=== PATIENT | male | born 1985 | race Caucasian/White ===

== ENCOUNTER 2016-07-22 00:08 | Emergency (ER) | payer OTHER ==
[2016-07-22 00:17] VITALS: BP 122/67; PULSE 90; RESP 20; TEMP 98.5
--- NOTE | 2016-07-22 00:39 | ED ---
Wound/Laceration HPI - General Chief Complaint: Wound/Laceration Stated Complaint: finger laceration/lightheaded Time Seen by Provider: 07/22/16 00:12 Source: patient, RN notes reviewed Mode of arrival: ambulatory Limitations: no limitations - History of Present Illness Initial Comments: Patient is a 30-year-old male presents to the emergency room for evaluation of finger laceration. Patient states about 3 hours ago while cooking dinner he sliced his finger with a knife. Patient states the area will not stop bleeding. Patient states he put superglue over the laceration with no relief of symptoms. Patient denies any numbness or tingling in his finger. Patient denies taking blood thinners. Patient states last tetanus vaccine was within the last 5 years. Patient denies any other injuries during incident. Patient also states he's been having a migraine since he sliced his finger. Patient states he has a history of migraines. Patient states this is similar to his normal migraines. Patient states he feels nauseous. Patient states he is a 8 out of 10 headache. Patient denies numbness or tingling in extremities. Patient denies neck pain. Patient denies any fevers or chills. - Related Data Previous Rx's Medication Instructions Recorded Cyclobenzaprine [Flexeril] 10 mg PO TID #20 tab 07/03/16 Naproxen 500 mg PO Q12HR #20 tab 07/03/16 Allergies Allergy/AdvReac Type Severity Reaction Status Date / Time Sulfa (Sulfonamide Allergy Swelling Verified 07/22/16 00:17 Antibiotics) Review of Systems ROS Statement: Those systems with pertinent positive or pertinent negative responses have been documented in the HPI. ROS Other: All systems not noted in ROS Statement are negative. Past Medical History Additional Past Medical History / Comment(s): TBI, PTSD, migraines History of Any Multi-Drug Resistant Organisms: None Reported Past Surgical History: Ear Surgery, Orthopedic Surgery Past Psychological History: PTSD Smoking Status: Never smoker Past Alcohol Use History: None Reported Past Drug Use History: None Reported General Exam - General Exam Comments Initial Comments: Sitting in exam room, no acute distress. Limitations: no limitations General appearance: alert, in no apparent distress Head exam: Present: atraumatic, normocephalic, normal inspection Eye exam: Present: normal appearance, PERRL, EOMI Pupils: Present: normal accommodation ENT exam: Present: normal exam Neck exam: Present: normal inspection Respiratory exam: Present: normal lung sounds bilaterally. Absent: respiratory distress Cardiovascular Exam: Present: regular rate, normal rhythm, normal heart sounds Right Hand Wrist exam: Present: laceration (1 cm laceration over DIP joint of the second digit) Neuro motor exam: Present: wrist extension intact, thumb opposition intact, thumb IP flexion intact, thumb adduction intact, fingers 2-5 abduction intact Vascular: Present: normal capillary refill (Capillary refill less than 2 seconds ), radial pulse (2+), ulnar pulse (2+) Back exam: Present: normal inspection Neurological exam: Present: alert, oriented X3, CN II-XII intact, normal gait Expanded Patient oriented to: Present: person, place, time Speech: Present: fluid speech Cranial nerves: EOM's Intact: Normal Sensory exam: Upper Extremity Light Touch: Normal, Lower Extremity Pin Prick: Normal Psychiatric exam: Present: normal affect, normal mood Skin exam: Present: warm, dry. Absent: rash Course Vital Signs 07/22/16 00:14 Temperature 98.5 F Pulse Rate 90 Respiratory 20 Rate Blood Pressure 122/67 O2 Sat by Pulse 100 Oximetry Procedures - Laceration Laceration #1 Consent Obtained: verbal consent Indication: laceration Site: other (right index finger) Size (cm): 1 Description: linear Depth: simple, single layer Anesthetic Used: lidocaine 1% Anesthesia Technique: local infiltration Amount (mls): 1 Pre-repair: irrigated extensively Type of Sutures: nylon Size of Sutures: 6-0 Number of Sutures: 3 Technique: simple, interrupted Patient Tolerated Procedure: well, no complications Medical Decision Making - Medical Decision Making Patient is a 30-year-old male presents to the emergency room for evaluation of finger laceration and migraine headache. Patient was given medication for migraine. Laceration repaired with sutures. Advised patient to return in 7-10 days for suture removal. Advised patient to follow-up with his primary care provider for further evaluation of migraine headaches. Patient states he understands everything that was discussed with him. Return parameters discussed. Case discussed with Dr. Alcala. - Radiology Data Radiology results: report reviewed, image reviewed Disposition Clinical Impression: Finger laceration, Headache Disposition: HOME SELF-CARE Condition: Good Instructions: Acute Headache (ED), Laceration (ED), Care For Your Stitches (ED) Additional Instructions: Do not soak suture area in water. Clean suture area with a damp cloth. Please return in 7-10 days for suture removal. Please follow up with primary care provider for evaluation of migraine headaches. Drink plenty of water. Please follow up with primary care provider in 1-2 days. If any new symptom arises, symptoms worsen or fever develops, return to ER as soon as possible. Referrals: Najma Nunez MD [Primary Care Provider] - 1-2 days Time of Disposition: 01:58
--- NOTE | 2016-07-22 01:11 | XR ---
EXAMINATION TYPE: XR finger RT DATE OF EXAM: 07/22/2016 1:06 AM COMPARISON: NONE HISTORY: Laceration TECHNIQUE: 3 views FINDINGS: I see no fracture nor dislocation. Joint spaces are normal. Soft tissues appear normal. IMPRESSION: Normal right index finger.
[2016-07-22] MEDS ORDERED: ONDANSETRON ODT 4 MG TAB PO STA (01:36)
[2016-07-22] MEDS ORDERED: Acetaminophen-Codeine 300-30mg TAB PO STA (01:36)
[2016-07-22] MEDS ORDERED: ACET/COD 300 MG/30 MG STARTER PACK 6 TAB BTL PO STA (02:00)
== END 2016-07-22 02:07 | disposition home or self-care (01) ==
LOC: EC 00:08
DX: S61.210A Laceration without foreign body of right index finger without damage to nail, initial encounter (principal); W26.0XXA Contact with knife, initial encounter; Y93.G3 Activity, cooking and baking; G43.909 Migraine, unspecified, not intractable, without status migrainosus; Z87.820 Personal history of traumatic brain injury; Z88.2 Allergy status to sulfonamides
CPT/HCPCS: 12001; 99283

== ENCOUNTER 2016-08-01 14:04 | Emergency (ER) | payer OTHER ==
[2016-08-01 14:12] VITALS: RESP 18
[2016-08-01 14:12] LABS: Glucose,Whole Blood 94 mg/dL (75-99)
[2016-08-01] MEDS ORDERED: SODIUM CHLORIDE 0.9% 1,000 ML IV ONE (14:13)
[2016-08-01 14:47] LABS: Anion Gap 9 mmol/L; Blood Urea Nitrogen 14 mg/dL (9-20); Calcium 9.1 mg/dL (8.4-10.2); Carbon Dioxide 24 mmol/L (22-30); Chloride 105 mmol/L (98-107); Glucose 99 mg/dL (74-99); Non-African American GFR(MDRD) >60 (>60 ml/min/1.73 sqM); Potassium 4.2 mmol/L (3.5-5.1); Sodium 138 mmol/L (137-145)
[2016-08-01 14:50] LABS: Basophils # (A) 0.1 k/uL (0-0.2); Basophils % (A) 1 %; CH 27.9; CHCM 34.4; Eosinophils # (A) 0.1 k/uL (0-0.7); Eosinophils % (A) 1 %; HCT 42.1 % (39.0-53.0); HDW 2.71; HGB 13.9 gm/dL (13.0-17.5); Luc # (Auto) 0.21; Luc % (Auto) 2; Lymphocytes # (A) 1.7 k/uL (1.0-4.8); Lymphocytes % (A) 19 %; MCHC 33.1 g/dL (31.0-37.0); MCV 81.3 fL (80.0-100.0); Mean Platelet Volume 7.2; Monocytes # (A) 0.7 k/uL (0-1.0); Monocytes % (A) 7 %; Neutrophils # (A) 6.3 k/uL (1.3-7.7); Neutrophils % (A) 69 %; RBC 5.17 m/uL (4.30-5.90); RDW 14.1 % (11.5-15.5); WBC 9.1 k/uL (3.8-10.6); WBC (Perox) 9.37
[2016-08-01] MEDS ORDERED: HYDROcodone/APAP 10-325MG 1 EACH TAB PO ONE (14:54)
--- NOTE | 2016-08-01 14:54 | ED ---
General Adult HPI - General Chief complaint: Syncope Stated complaint: Syncope Time Seen by Provider: 08/01/16 14:09 Source: patient, family, EMS, RN notes reviewed Mode of arrival: EMS Limitations: no limitations - History of Present Illness Initial comments: 30-year-old male presenting with significant other after possible seizure. Patient was at the orthopedic office for evaluation of his left AC joint when he had onset of convulsions and unresponsiveness for several minutes. Patient states that he has had similar episodes of seizure-like activity in the past and has seen a neurologist for this in the past. His last episode was about a year ago. He states that he was off of his normal medications for several weeks until he had his prescriptions refilled several days ago. He is now back and all of his normal medications. He states he is feeling back to normal at this time. State he has pain in his left shoulder although this is chronic. He denies any fevers or chills. He denies any neck pain. - Related Data Home Medications Medication Instructions Recorded Confirmed Aspirin/Acetaminophen/Caffeine 1 tab PO Q8H PRN 08/01/16 08/01/16 [Excedrin Migraine Caplet] DULoxetine HCL [Cymbalta] 60 mg PO DAILY 08/01/16 08/01/16 Gabapentin [Neurontin] 300 mg PO DAILY 08/01/16 08/01/16 Ibuprofen [Motrin] 600 mg PO Q8HR PRN 08/01/16 08/01/16 Lisinopril [Zestril] 20 mg PO DAILY 08/01/16 08/01/16 Prazosin HCl 2 mg PO DAILY 08/01/16 08/01/16 rOPINIRole HCL [Requip] 1 mg PO HS 08/01/16 08/01/16 risperiDONE [RisperDAL] 2 mg PO DAILY 08/01/16 08/01/16 Previous Rx's Medication Instructions Recorded HYDROcodone/APAP 10-325MG [[place] 1 tab PO Q6H PRN #12 tab 08/01/16 10-325] Allergies Allergy/AdvReac Type Severity Reaction Status Date / Time Sulfa (Sulfonamide Allergy Swelling Verified 08/01/16 14:38 Antibiotics) Review of Systems ROS Statement: Those systems with pertinent positive or pertinent negative responses have been documented in the HPI. ROS Other: All systems not noted in ROS Statement are negative. Past Medical History Additional Past Medical History / Comment(s): TBI, PTSD, migraines History of Any Multi-Drug Resistant Organisms: None Reported Past Surgical History: Ear Surgery, Orthopedic Surgery Past Psychological History: PTSD Smoking Status: Former smoker Past Alcohol Use History: None Reported Past Drug Use History: None Reported General Exam - General Exam Comments Initial Comments: General: Awake and Alert. No acute distress. Does not appear acutely ill. Eyes: DENA, EOM intact. No nystagmus. No scleral icterus. HENT: Atraumatic, normocephalic. Mucous membranes moist. Trachea midline. Neck: The neck is supple, there is no tenderness or JVD. Cardiovascular: Regular rate and rhythm. No murmur, rub, or gallop is appreciated. Distal pulses intact. Respiratory: Lungs are clear to auscultation bilaterally. No wheezes, rales, rhonchi. No respiratory distress. Gastrointestinal: Soft, Nontender. No rebound or guarding. Non-distended. No masses or organomegaly noted. No CVA tenderness. Musculoskeletal: Tenderness of left AC joint. Otherwise MSK exam with no tenderness. Normal ROM. No gross deformity. No strength deficits. Neurological: A&Ox3. CN II-XII grossly intact, There are no obvious motor or sensory deficits. Coordination appears grossly intact. Speech is normal. Skin: Skin is warm and dry and no rashes or lesions are noted. Psychiatric: Cooperative, appropriate mood & affect, normal judgment. Limitations: no limitations Course Vital Signs 08/01/16 08/01/16 08/01/16 14:09 14:45 15:50 Temperature 98.1 F 98.0 F Pulse Rate 98 74 Pulse Rate [ 97 Apical] Respiratory 18 18 Rate Blood Pressure 122/74 124/76 O2 Sat by Pulse 100 99 Oximetry EKG Findings - EKG Comments: EKG Findings:: 14:07. Normal sinus rhythm. Rate 100. [place] 142. QRS 82. QT/ QTC 342/441. Normal axis. No STEMI. Normal EKG. Medical Decision Making - Medical Decision Making 30-year-old male presenting after a likely seizure. Patient is returned to baseline during examination the ED. Does have history of seizures but is not currently on any antiepileptic medications. He has not seen a neurologist in some time, although he states he was never been on antiepileptic medications in the past. No plan for loading at this time with Dilantin or Keppra. Patient observed in the ED without any return of seizure activity. Basic lab work was performed which is unremarkable. EKG was done and unremarkable as well. Patient has normal neurological exam. He was able to ambulate without issue. Discussed close follow-up with his PCP and neurology. Discussed continue follow -up with orthophoric his left shoulder pain. Discussed taking all of his normal medications as prescribed. Discussed concerning signs symptoms for immediate return to ED. Patient and family agreeable with plan a discharge home. Was provided with a 3 day prescription of his [place] until he is able to follow-up with PCP. - Lab Data Result diagrams: 08/01/16 14:15 08/01/16 14:15 Lab Results 08/01/16 08/01/16 08/01/16 Range/Units 14:09 14:15 14:15 WBC 9.1 (3.8-10.6) k/uL RBC 5.17 (4.30-5.90) m/uL Hgb 13.9 (13.0-17.5) gm/dL Hct 42.1 (39.0-53.0) % MCV 81.3 (80.0-100.0) fL MCH 27.0 (25.0-35.0) pg MCHC 33.1 (31.0-37.0) g/dL RDW 14.1 (11.5-15.5) % Plt Count 231 (150-450) k/uL Neutrophils % 69 % Lymphocytes % 19 % Monocytes % 7 % Eosinophils % 1 % Basophils % 1 % Neutrophils # 6.3 (1.3-7.7) k/uL Lymphocytes # 1.7 (1.0-4.8) k/uL Monocytes # 0.7 (0-1.0) k/uL Eosinophils # 0.1 (0-0.7) k/uL Basophils # 0.1 (0-0.2) k/uL Sodium 138 (137-145) mmol/L Potassium 4.2 (3.5-5.1) mmol/L Chloride 105 (98-107) mmol/L Carbon Dioxide 24 (22-30) mmol/L Anion Gap 9 mmol/L BUN 14 (9-20) mg/dL Creatinine 0.93 (0.66-1.25) mg/dL Est GFR (MDRD) Af Amer >60 (>60 ml/min/1.73 sqM) Est GFR (MDRD) Non-Af >60 (>60 ml/min/1.73 sqM) Glucose 99 (74-99) mg/dL POC Glucose (mg/dL) 94 (75-99) mg/dL POC Glu [employer] Grade [employer] ID Melida Robertson Calcium 9.1 (8.4-10.2) mg/dL - EKG Data -: EKG Interpreted by Me EKG shows normal: sinus rhythm Rate: normal Disposition Clinical Impression: Seizure, Left shoulder pain Disposition: HOME SELF-CARE Condition: Stable Instructions: Recurrent Seizures in Adults (ED) Prescriptions: HYDROcodone/APAP 10-325MG [[place] 10-325] 1 tab PO Q6H PRN #12 tab PRN Reason: Pain Referrals: Spencer Haddad DO [Primary Care Provider] - 1-2 days Sarahy Lewis MD [STAFF PHYSICIAN] - 1-2 days Emiliana Lewis MD [STAFF PHYSICIAN] - 1-2 days Time of Disposition: 15:37
[2016-08-01 15:51] VITALS: BP 124/76; PULSE 74; TEMP 98
== END 2016-08-01 15:51 | disposition home or self-care (01) ==
LOC: EC 14:04
DX: G40.909 Epilepsy, unspecified, not intractable, without status epilepticus (principal); M25.512 Pain in left shoulder; Z79.899 Other long term (current) drug therapy; Z79.82 Long term (current) use of aspirin; Z88.2 Allergy status to sulfonamides; Z87.891 Personal history of nicotine dependence; Z87.820 Personal history of traumatic brain injury
CPT/HCPCS: 36415; 80048; 85025; 93005; 96360; 99285